=== PATIENT | male | born 1965 | race Hispanic/Latino ===

== ENCOUNTER 2022-05-11 09:06 | Emergency (ER) | payer OTHER ==
[~2022-05-11] VITALS: Ht 160 cm; Wt 90.7 kg
[2022-05-11] MEDS ORDERED: CEFTRIAXONE 1G VIAL IM ONE (09:30)
[2022-05-11] MEDS ORDERED: LIDOCAINE HCL 1% 20 ML VIAL ONE (09:35)
[2022-05-11] MEDS ORDERED: BACITRACIN 1 EACH PACKET TP ONE (10:35)
[2022-05-11] MEDS ORDERED: CEPH500B PO (10:45)
[2022-05-11 10:55] VITALS: BP 132/69
== END 2022-05-11 10:50 | disposition home or self-care (01) ==
LOC: EDH 09:06
DX: S61.411A Laceration without foreign body of right hand, initial encounter (principal); W26.8XXA Contact with other sharp object(s), not elsewhere classified, initial encounter; Y93.89 Activity, other specified; Y92.89 Other specified places as the place of occurrence of the external cause; Y99.8 Other external cause status
CPT/HCPCS: 99283; 73130; 12002; 96372; J0696